=== PATIENT | male | born 1980 | race Caucasian/White ===

== ENCOUNTER 2021-06-18 11:44 | Outpatient (CLI) | payer BC, SELFPAY ==
--- NOTE | ~2021-06-18 | US_ITS ---
EXAMINATION: US retroperitoneal comp EXAM DATE: 06/18/2021 12:00 INDICATION: Other specified abnormal findings of blood chemistry. TECHNIQUE: Multiple grayscale and Doppler images of the kidneys were obtained (by a technologist who performed the scan) and subsequently reviewed. There is no prior study for comparison. FINDINGS: Right kidney: There is normal contour and echogenicity. It measures 9.9 x 4.4 x 5.2 centimeters. Th ere are no focal renal lesions identified. There is no hydronephrosis. Left kidney: There is normal contour and echogenicity. It measures 10.7 x 5.9 x 5.5 centimeters. Th ere are no focal renal lesions identified. There is no hydronephrosis. Bladder unremarkable. IMPRESSION: 1. Sonographically unremarkable kidneys. Reviewed, dictated and finalized at location A. [employer]
== END 2021-06-18 11:45 ==
LOC: MICIMG 11:46
PROVIDERS: PCP Student in an Organized Health Care Education/Training Program; Visit Provider Student in an Organized Health Care Education/Training Program
DX: R79.89 Other specified abnormal findings of blood chemistry (principal)
CPT/HCPCS: 76770

== ENCOUNTER 2024-06-17 12:23 | Emergency (ER) | payer OTHER, SELFPAY ==
--- NOTE | ~2024-06-17 | XR_ITS ---
EXAMINATION: XR foot RT min 3V DATE: 06/17/2024 13:02 INDICATION: Bruising at the lateral right midfoot post basketball injury. TECHNIQUE: Dorsoplantar, two oblique and lateral views of the right foot were obtained. COMPARISON: None. FINDINGS: 1 mm plantar displacement of an oblique extra articular fracture across the mid diaphysis of the righ t fifth metatarsal. On one of the lateral projections there is a thin calcific density ejecting dorsa l to the base of the metatarsals suspicious for a minimally distracted fracture although no definitiv e donor site is appreciated. No other fractures identified. Joint spaces are normal. IMPRESSION: 1. Negligible plantar displacement of a mid diaphyseal fracture of the right fifth metatarsal. 2. Possible additional small fracture fragment projecting dorsal to the base of the metatarsals witho ut definitive donor site. Correlate for point tenderness along the dorsum of the midfoot. Reviewed, dictated and finalized at location B. [facility] IMPRESSION: 1. Negligible plantar displacement of a mid diaphyseal fracture of the right fi fth metatarsal. 2. Possible additional small fracture fragment projecting dorsal to the base of the metatarsals without definitive donor site. Correlate for point tenderness along the dorsum of the midfoot.
[2024-06-17 12:29] VITALS: BP 146/83; PULSE 78; RESP 18; TEMP 36.4; O2SAT 99
[2024-06-17 14:21] VITALS: BP 164/91; PULSE 66; RESP 18; O2SAT 98
--- NOTE | 2024-06-17 15:21 | ED.LOWEXIN ---
HPI - Extremity Injury (Lower) General Chief Complaint: Extremity Injury, Lower Stated Complaint: right foot injury Time Seen by Provider: 06/17/24 14:29 History of Present Illness HPI Narrative: 43-year-old male presenting with right foot pain. Was playing basketball couple of days ago when he twisted it and heard several pops. He figured He had just strained it but the pain is continued so his made him come in for evaluation. Related Data Allergies Allergy/AdvReac Type Severity Reaction Status Date / Time No Known Allergies Allergy Verified 06/17/24 12:26 Review of Systems Review of Systems: All systems reviewed & are unremarkable except as noted in HPI and below Exam Narrative: GENERAL: Well-appearing, well-nourished, and in no acute distress. HEAD: Normocephalic, atraumatic. EYES: PERRLA and EOMI. ENT: Grossly unremarkable NECK: Supple. CHEST: No respiratory distress. HEART: Regular rate and rhythm EXTREMITIES: Right foot with lateral tenderness, diffuse swelling, no ecchymoses or erythema, neurovascularly intact SKIN: Warm, dry, no rash. NEURO: Alert and oriented x3. PSYCH: Normal mood and affect. Course Vital Signs Vital signs: Vital Signs Temperature 97.6 F 06/17/24 12:29 Pulse Rate 78 06/17/24 12:29 Respiratory Rate 18 06/17/24 12:29 Blood Pressure 146/83 H 06/17/24 12:29 Pulse Oximetry 99 06/17/24 12:29 Temperature 97.6 F 06/17/24 12:29 Pulse Rate 66 06/17/24 14:21 Respiratory Rate 18 06/17/24 14:21 Blood Pressure 164/91 H 06/17/24 14:21 Pulse Oximetry 98 06/17/24 14:21 MDM - Extremity Injury (Lower) MDM Narrative Medical decision making narrative: 43-year-old male presenting with right foot pain after twisting it during a game of basketball. Vitals are stable. Exam remarkable for the above. X-ray reveals mid diaphyseal metatarsal fracture of the 5th digit with negligible plantar displacement. Patient placed in splint, discussed appropriate supportive care and return precautions. Advised close orthopedic follow-up. Patient is agreeable this plan. Discharged in stable condition. Differential Diagnosis Differential diagnosis: Likely ankle sprain and strain, ankle fracture and other (Fractured foot) Medical Records Attestation: I reviewed the patient's medical records. Imaging Data Radiologist's impression: ITS Impressions Foot X-Ray 06/17/24 13:35 IMPRESSION: 1. Negligible plantar displacement of a mid diaphyseal fracture of the right fifth metatarsal. 2. Possible additional small fracture fragment projecting dorsal to the base of the metatarsals without definitive donor site. Correlate for point tenderness along the dorsum of the midfoot. Critical Care Time Critical Care Time Critical Care Time: No Discharge Plan Discharge Clinical Impression: Metatarsal fracture Patient Disposition: Home, Self-Care Condition: Stable Instructions: Antibiotic Form, Foot Fracture in Adults (ED) Additional Instructions: You fractured 1 of the bones in your right foot. You have been placed in a splint and we recommend using the crutches to keep weight off of the foot. Follow-up closely with orthopedic surgery. Use Tylenol and ibuprofen for pain control. Rest, elevate the foot, and apply ice as needed. If your symptoms worsen or other concerning symptoms arise, please return to the ER. Follow-up/Referrals: Arcelia,DO Toño [Primary Care Provider] - Konstantin Ray MD [Physician] - Stand Alone Forms: Work/School Release IP
== END 2024-06-17 16:44 | disposition home or self-care (01) ==
PROVIDERS: Emergency Provider Emergency Medicine; PCP Student in an Organized Health Care Education/Training Program
DX: S92.351A Displaced fracture of fifth metatarsal bone, right foot, initial encounter for closed fracture (principal); X50.9XXA Other and unspecified overexertion or strenuous movements or postures, initial encounter; Y93.67 Activity, basketball
CPT/HCPCS: 29515; 73630; 99284